=== PATIENT | male | born 1980 | race Caucasian/White ===

== ENCOUNTER → 2023-04-05 | Outpatient (CLI) | payer OTHER ==
[2023-04-05 18:18] LABS: BASOPHILS ABSOLUTE AUTO 0.13 K/mm3 (0.00-0.23); BASOPHILS PERCENT AUTO 1 % (0-2); EOSINOPHILS ABSOLUTE AUTO 0.12 K/mm3 (0.00-0.68); EOSINOPHILS PERCENT AUTO 1 % (0-6); Hemoglobin 15.9 g/dL (13.5-17.5); IMMATURE GRAN ABSOLUTE AUTO 0.03 K/mm3 (0.00-0.10); IMMATURE GRAN PERCENT AUTO 0 % (0-1); LYMPHOCYTES ABSOLUTE AUTO 2.53 K/mm3 (0.84-5.20); LYMPHOCYTES PERCENT AUTO 24 % (21-46); MONOCYTES ABSOLUTE AUTO 1.09 K/mm3 (0.16-1.47); MONOCYTES PERCENT AUTO 10 % (4-13); Mean Corpuscular HGB 28.9 pg (26.0-34.0); Mean Corpuscular HGB Conc 33.8 g/dL (31.5-36.5); Mean Corpuscular Volume 85 fL (80-100); Mean Platelet Volume 9.8 fL (9.1-12.4); NEUTROPHILS ABSOLUTE AUTO 6.65 K/mm3 (1.96-9.15); NEUTROPHILS PERCENT AUTO 63 % (41-73); Platelet Count 376 K/mm3 (150-400); RDW Coefficient Variation 13.5 % (11.7-14.2); RDW Standard Deviation 41.6 fL (35.1-46.3); Red Blood Cell Count 5.51 M/mm3 (4.30-5.90); White Blood Cell Count 10.55 K/mm3 (4.00-11.30)
[2023-04-05 20:11] LABS: Bun/Creatinine Ratio 8.5 (12.0-20.0); Calcium, Blood 9.2 mg/dL (8.5-10.1); Creatinine, Blood 0.59 mg/dL (0.60-1.20)
== END | disposition home or self-care (01) ==
LOC: LAB 18:14 → LAB SHORT 18:14
PROVIDERS: Physician Assistant Surgical
DX: R59.1 Generalized enlarged lymph nodes (principal)
CPT/HCPCS: 80048; 85025

== ENCOUNTER 2023-08-17 01:50 | Emergency (ER) | payer OTHER ==
[~2023-08-17] VITALS: Ht 175.3 cm; Wt 60.8 kg
[2023-08-17 02:41] LABS: Albumin, Blood 3.2 g/dL (3.4-5.0); Albumin/Globulin Ratio 0.9 (0.8-1.8); Bilirubin, Total 0.3 mg/dL (0.1-1.0); Bun/Creatinine Ratio 6.5 (12.0-20.0); Calcium, Blood 6.5 mg/dL (8.5-10.1); Creatinine, Blood 0.61 mg/dL (0.60-1.20); Globulin, Blood 3.6 g/dL (2.2-4.0); Potassium, Blood 2.8 mmol/L (3.5-5.5); Total Protein, Blood 6.8 g/dL (6.4-8.2)
[2023-08-17 02:51] LABS: BASOPHILS ABSOLUTE AUTO 0.04 K/mm3 (0.00-0.23); BASOPHILS PERCENT AUTO 1 % (0-2); EOSINOPHILS ABSOLUTE AUTO 0.12 K/mm3 (0.00-0.68); EOSINOPHILS PERCENT AUTO 3 % (0-6); Hematocrit 40.8 % (37.0-53.0); Hemoglobin 14.3 g/dL (13.5-17.5); IMMATURE GRAN ABSOLUTE AUTO 0.01 K/mm3 (0.00-0.10); IMMATURE GRAN PERCENT AUTO 0 % (0-1); LYMPHOCYTES ABSOLUTE AUTO 0.53 K/mm3 (0.84-5.20); LYMPHOCYTES PERCENT AUTO 13 % (21-46); MONOCYTES ABSOLUTE AUTO 0.66 K/mm3 (0.16-1.47); MONOCYTES PERCENT AUTO 16 % (4-13); Mean Corpuscular HGB 30.1 pg (26.0-34.0); Mean Corpuscular Volume 86 fL (80-100); Mean Platelet Volume 8.8 fL (9.1-12.4); NEUTROPHILS PERCENT AUTO 66 % (41-73); Platelet Count 251 K/mm3 (150-400); RDW Coefficient Variation 15.4 % (11.7-14.2); RDW Standard Deviation 45.6 fL (35.1-46.3); Red Blood Cell Count 4.75 M/mm3 (4.30-5.90); White Blood Cell Count 4.06 K/mm3 (4.00-11.30)
[2023-08-17] MEDS ORDERED: Magnesium Sulf 2 GM/Water 50ML 50 ML IV ONE ×2 (04:40→06:15)
[2023-08-17] MEDS ORDERED: Potassium Phosphate,Monobasic 500 MG Tablet PO ONE (04:40)
[2023-08-17] MEDS ORDERED: D5W-LR 1,000 ML IV SCH (04:45)
[2023-08-17] MEDS ORDERED: Ondansetron HCl 2 MG / ML 2ML Vial IV ONE (04:45)
[2023-08-17 05:58] LABS: Phosphorus, Blood 2.4 mg/dL (2.5-4.9)
[2023-08-17 06:00] LABS: Magnesium, Blood 0.6 mg/dL (1.6-2.4)
[2023-08-17] MEDS ORDERED: Metoclopramide HCl 5MG / ML 2ML Vial IV ONE (06:15)
[2023-08-17] MEDS ORDERED: ONDA4ODT MM (06:18)
[2023-08-17] MEDS ORDERED: PROM12.5S PR (06:18)
[2023-08-17 07:30] VITALS: BP 117/69
== END 2023-08-17 08:05 | disposition home or self-care (01) ==
LOC: ER 01:50
PROVIDERS: Emergency Medicine
DX: E86.0 Dehydration (principal); E83.42 Hypomagnesemia; C10.9 Malignant neoplasm of oropharynx, unspecified; Z79.899 Other long term (current) drug therapy; Z88.0 Allergy status to penicillin; Z88.4 Allergy status to anesthetic agent
CPT/HCPCS: 80053; 83735; 84100; 85025; A9270; J2405; J2765; J3475; J7121

== ENCOUNTER → 2023-08-20 | Outpatient (CLI) | payer OTHER ==
[~2023-08-20] MED LIST: ONDA4ODT MM; POLYMYXIN B-TMP10 ML BOTHEYES; PROM12.5S PR; REMERON1510 PO; ZADITOR5 M1 OP
[2023-08-20 16:33] LABS: Hematocrit 45.5 % (37.0-53.0); Hemoglobin 15.6 g/dL (13.5-17.5); Mean Corpuscular HGB 29.9 pg (26.0-34.0); Mean Corpuscular HGB Conc 34.3 g/dL (31.5-36.5); Mean Corpuscular Volume 87 fL (80-100); Mean Platelet Volume 8.5 fL (9.1-12.4); Platelet Count 243 K/mm3 (150-400); RDW Coefficient Variation 16.3 % (11.7-14.2); RDW Standard Deviation 50.3 fL (35.1-46.3); Red Blood Cell Count 5.21 M/mm3 (4.30-5.90); White Blood Cell Count 3.52 K/mm3 (4.00-11.30)
[2023-08-20 16:53] LABS: Albumin, Blood 3.3 g/dL (3.4-5.0); Albumin/Globulin Ratio 0.8 (0.8-1.8); Bilirubin, Total 0.5 mg/dL (0.1-1.0); Bun/Creatinine Ratio 10.2 (12.0-20.0); Calcium, Blood 7.1 mg/dL (8.5-10.1); Creatinine, Blood 0.69 mg/dL (0.60-1.20); Potassium, Blood 3.6 mmol/L (3.5-5.5); Total Protein, Blood 7.3 g/dL (6.4-8.2)
[2023-08-20 17:12] LABS: BAND PERCENT MAN 2 % (0-8); BASOPHILS PERCENT MAN 0 % (0-2); EOSINOPHILS ABSOLUTE MAN 0.14 K/mm3 (0.00-0.68); EOSINOPHILS PERCENT MAN 4 % (0-6); LYMPHOCYTES % ATYPICAL MANUAL 1 % (0-0); LYMPHOCYTES ABSOLUTE MAN 0.35 K/mm3 (0.84-5.20); LYMPHOCYTES PERCENT MAN 9 % (21-46); MONOCYTES ABSOLUTE MAN 0.38 K/mm3 (0.16-1.47); MONOCYTES PERCENT MAN 11 % (4-13); NEUTROPHILS ABSOLUTE MAN 2.64 K/mm3 (1.96-9.15); SEG NEUTROPHILS PERCENT MAN 73 % (41-73); TOTAL CELLS COUNTED 100
== END | disposition home or self-care (01) ==
LOC: LAB 15:29 → LAB SHORT 15:29
PROVIDERS: Internal Medicine Hematology & Oncology
DX: C01 Malignant neoplasm of base of tongue (principal)
CPT/HCPCS: 80053; 85025

== ENCOUNTER 2023-09-02 20:52 | Emergency (ER) | payer OTHER ==
[~2023-09-02] VITALS: Ht 177.8 cm; Wt 54.9 kg
[~2023-09-02 20:52] MED LIST changes: -POLYMYXIN B-TMP10 ML BOTHEYES; -REMERON1510 PO; -ZADITOR5 M1 OP
[2023-09-02 21:51] LABS: BASOPHILS ABSOLUTE AUTO 0.05 K/mm3 (0.00-0.23); BASOPHILS PERCENT AUTO 1 % (0-2); EOSINOPHILS ABSOLUTE AUTO 0.22 K/mm3 (0.00-0.68); EOSINOPHILS PERCENT AUTO 5 % (0-6); Hematocrit 48.4 % (37.0-53.0); Hemoglobin 16.5 g/dL (13.5-17.5); IMMATURE GRAN PERCENT AUTO 0 % (0-1); LYMPHOCYTES ABSOLUTE AUTO 0.73 K/mm3 (0.84-5.20); LYMPHOCYTES PERCENT AUTO 18 % (21-46); MONOCYTES PERCENT AUTO 12 % (4-13); Mean Corpuscular HGB 29.5 pg (26.0-34.0); Mean Corpuscular HGB Conc 34.1 g/dL (31.5-36.5); Mean Corpuscular Volume 86 fL (80-100); Mean Platelet Volume 8.6 fL (9.1-12.4); NEUTROPHILS ABSOLUTE AUTO 2.62 K/mm3 (1.96-9.15); NEUTROPHILS PERCENT AUTO 64 % (41-73); Platelet Count 425 K/mm3 (150-400); RDW Standard Deviation 49.5 fL (35.1-46.3); White Blood Cell Count 4.12 K/mm3 (4.00-11.30)
[2023-09-02 22:10] VITALS: BP 117/91
[2023-09-02 22:10] LABS: Albumin, Blood 3.6 g/dL (3.4-5.0); Albumin/Globulin Ratio 0.8 (0.8-1.8); Bilirubin, Total 0.3 mg/dL (0.1-1.0); Bun/Creatinine Ratio 7.5 (12.0-20.0); Calcium, Blood 8.8 mg/dL (8.5-10.1); Creatinine, Blood 0.94 mg/dL (0.60-1.20); Globulin, Blood 4.4 g/dL (2.2-4.0); Potassium, Blood 3.6 mmol/L (3.5-5.5)
[2023-09-03] MEDS ORDERED: POLYMYXIN B-TMP10 ML BOTHEYES (01:06)
[2023-09-03] MEDS ORDERED: ZADITOR5 M1 OP (01:06)
[2023-09-03] MEDS ORDERED: REMERON1510 PO (01:07)
== END 2023-09-02 23:40 | disposition home or self-care (01) ==
LOC: ER 20:52
PROVIDERS: Physician Assistant
DX: H10.89 Other conjunctivitis (principal); C02.9 Malignant neoplasm of tongue, unspecified; Z92.3 Personal history of irradiation; Z88.0 Allergy status to penicillin; Z88.4 Allergy status to anesthetic agent
CPT/HCPCS: 80053; 85025; 99283

== ENCOUNTER → 2024-03-11 | Outpatient (CLI) | payer OTHER ==
[~2024-03-11] MED LIST changes: +POLYMYXIN B-TMP10 ML BOTHEYES; +REMERON1510 PO; +ZADITOR5 M1 OP
== END ==
LOC: LAB 13:23 → LAB SHORT 13:23
DX: K14.3 Hypertrophy of tongue papillae (principal); C01 Malignant neoplasm of base of tongue
CPT/HCPCS: 88305

== ENCOUNTER → 2024-04-09 | Outpatient (CLI) | payer OTHER ==
[~2024-04-09] MED LIST changes: +METO10 PO; +ONDA4 PO
[2024-04-09 16:34] LABS: BASOPHILS ABSOLUTE AUTO 0.09 K/mm3 (0.00-0.23); BASOPHILS PERCENT AUTO 1 % (0-2); EOSINOPHILS ABSOLUTE AUTO 0.09 K/mm3 (0.00-0.68); EOSINOPHILS PERCENT AUTO 1 % (0-6); Hematocrit 50.7 % (37.0-53.0); Hemoglobin 17.8 g/dL (13.5-17.5); IMMATURE GRAN ABSOLUTE AUTO 0.04 K/mm3 (0.00-0.10); IMMATURE GRAN PERCENT AUTO 1 % (0-1); LYMPHOCYTES ABSOLUTE AUTO 0.92 K/mm3 (0.84-5.20); LYMPHOCYTES PERCENT AUTO 11 % (21-46); MONOCYTES ABSOLUTE AUTO 0.82 K/mm3 (0.16-1.47); MONOCYTES PERCENT AUTO 10 % (4-13); Mean Corpuscular HGB 30.4 pg (26.0-34.0); Mean Corpuscular HGB Conc 35.1 g/dL (31.5-36.5); Mean Corpuscular Volume 87 fL (80-100); Mean Platelet Volume 8.3 fL (9.1-12.4); NEUTROPHILS ABSOLUTE AUTO 6.62 K/mm3 (1.96-9.15); NEUTROPHILS PERCENT AUTO 77 % (41-73); Platelet Count 382 K/mm3 (150-400); RDW Coefficient Variation 14.8 % (11.7-14.2); RDW Standard Deviation 47.1 fL (35.1-46.3); Red Blood Cell Count 5.85 M/mm3 (4.30-5.90); White Blood Cell Count 8.58 K/mm3 (4.00-11.30)
[2024-04-09 16:49] LABS: Albumin/Globulin Ratio 0.7 (0.8-1.8); Bilirubin, Total 0.9 mg/dL (0.1-1.0); Bun/Creatinine Ratio 14.3 (12.0-20.0); Calcium, Blood 9.4 mg/dL (8.5-10.1); Creatinine, Blood 0.91 mg/dL (0.60-1.20); Globulin, Blood 4.1 g/dL (2.2-4.0); Magnesium, Blood 1.4 mg/dL (1.6-2.4); Potassium, Blood 4.7 mmol/L (3.5-5.5); Total Protein, Blood 7.1 g/dL (6.4-8.2)
== END | disposition home or self-care (01) ==
LOC: LAB SHORT 16:27 → LAB 16:27
PROVIDERS: Family Medicine
DX: R11.2 Nausea with vomiting, unspecified (principal)
CPT/HCPCS: 80053; 83735; 85025

== ENCOUNTER 2024-04-10 21:15 | Emergency (ER) | payer OTHER ==
[~2024-04-10] VITALS: Ht 172.7 cm; Wt 60.3 kg
[~2024-04-10 21:15] MED LIST changes: -METO10 PO; -ONDA4 PO
[2024-04-10 21:42] LABS: BASOPHILS ABSOLUTE AUTO 0.07 K/mm3 (0.00-0.23); BASOPHILS PERCENT AUTO 1 % (0-2); EOSINOPHILS ABSOLUTE AUTO 0.09 K/mm3 (0.00-0.68); EOSINOPHILS PERCENT AUTO 1 % (0-6); Hematocrit 53.7 % (37.0-53.0); Hemoglobin 18.4 g/dL (13.5-17.5); IMMATURE GRAN ABSOLUTE AUTO 0.02 K/mm3 (0.00-0.10); IMMATURE GRAN PERCENT AUTO 0 % (0-1); LYMPHOCYTES ABSOLUTE AUTO 0.94 K/mm3 (0.84-5.20); LYMPHOCYTES PERCENT AUTO 11 % (21-46); MONOCYTES ABSOLUTE AUTO 0.65 K/mm3 (0.16-1.47); MONOCYTES PERCENT AUTO 8 % (4-13); Mean Corpuscular HGB 30.3 pg (26.0-34.0); Mean Corpuscular HGB Conc 34.3 g/dL (31.5-36.5); Mean Corpuscular Volume 88 fL (80-100); Mean Platelet Volume 8.1 fL (9.1-12.4); NEUTROPHILS ABSOLUTE AUTO 6.78 K/mm3 (1.96-9.15); NEUTROPHILS PERCENT AUTO 79 % (41-73); Platelet Count 386 K/mm3 (150-400); RDW Standard Deviation 49.1 fL (35.1-46.3); Red Blood Cell Count 6.08 M/mm3 (4.30-5.90); White Blood Cell Count 8.55 K/mm3 (4.00-11.30)
[2024-04-10 22:04] LABS: Albumin, Blood 3.2 g/dL (3.4-5.0); Albumin/Globulin Ratio 0.7 (0.8-1.8); Bilirubin, Total 0.8 mg/dL (0.1-1.0); Bun/Creatinine Ratio 11.8 (12.0-20.0); Calcium, Blood 9.2 mg/dL (8.5-10.1); Creatinine, Blood 0.85 mg/dL (0.60-1.20); Globulin, Blood 4.4 g/dL (2.2-4.0); Total Protein, Blood 7.6 g/dL (6.4-8.2)
[2024-04-10 22:39] VITALS: BP 130/92
[2024-04-10] MEDS ORDERED: NS 1,000 ML IV SCH (23:00)
[2024-04-10] MEDS ORDERED: Ondansetron HCl 2 MG / ML 2ML Vial IV ONE (23:00)
[2024-04-10 23:34] LABS: Free Thyroxine 1.02 ng/dL (0.70-1.60); Thyroid Stimulating Hormone 6.74 uIU/mL (0.360-4.800)
[2024-04-10] MEDS ORDERED: ONDA4 PO (23:41)
[2024-04-11] MEDS ORDERED: ONDA4ODT MM (04:43)
[2024-04-11] MEDS ORDERED: METO10 PO (04:54)
== END 2024-04-11 00:09 | disposition home or self-care (01) ==
LOC: ER 21:15
PROVIDERS: Physician Assistant
DX: R11.2 Nausea with vomiting, unspecified (principal); R10.9 Unspecified abdominal pain; Z79.899 Other long term (current) drug therapy; Z88.0 Allergy status to penicillin; Z88.8 Allergy status to other drugs, medicaments and biological substances
CPT/HCPCS: 80053; 84439; 84443; 85025; 96361; 96374; 99284-25; J2405; J7030

== ENCOUNTER 2024-04-11 01:04 | Emergency (ER) | payer OTHER ==
[~2024-04-11] VITALS: Ht 175.3 cm; Wt 59.4 kg
[~2024-04-11 01:04] MED LIST changes: +ONDA4 PO
[2024-04-11] MEDS ORDERED: NS 1,000 ML IV SCH (01:50)
[2024-04-11] MEDS ORDERED: Ondansetron HCl 2 MG / ML 2ML Vial IV ONE (01:50)
[2024-04-11 03:54] LABS: Source, Urine Clean Catch
[2024-04-11] MEDS ORDERED: Metoclopramide HCl 5MG / ML 2ML Vial IV ONE (03:55)
[2024-04-11 03:58] LABS: Appearance, Urine Clear (Clear); Bilirubin, Urine Neg (Neg); Blood, Urine Neg (Neg); Color, Urine Yellow (P-Yellow); Glucose Qualitative, Urine Neg (Neg); Ketones, Urine 2+ (Neg); Leukocyte Esterase, Urine Neg (Neg); Nitrite, Urine Neg (Neg); Protein, Urine Neg (Neg); Urobilinogen, Urine NORM (Normal)
[2024-04-11] MEDS ORDERED: NS 500 ML IV SCH (04:05)
[2024-04-11 04:30] VITALS: BP 127/93
[2024-04-11] MEDS ORDERED: ONDA4ODT MM (04:43)
[2024-04-11] MEDS ORDERED: METO10 PO (04:54)
== END 2024-04-11 04:45 | disposition home or self-care (01) ==
LOC: ER 01:04
PROVIDERS: Student in an Organized Health Care Education/Training Program
DX: R11.2 Nausea with vomiting, unspecified (principal); Z79.899 Other long term (current) drug therapy; Z88.0 Allergy status to penicillin; Z88.8 Allergy status to other drugs, medicaments and biological substances
CPT/HCPCS: 74177; 81003; 82947; 96361; 96374-59; 96375; 99284-25; J2405; J2765; J7030; Q9967

== ENCOUNTER 2024-04-12 14:43 | Emergency (ER) | payer OTHER ==
[~2024-04-12] VITALS: Ht 175.3 cm; Wt 59.0 kg
[~2024-04-12 14:43] MED LIST changes: +METO10 PO
[2024-04-12 15:08] LABS: BASOPHILS ABSOLUTE AUTO 0.08 K/mm3 (0.00-0.23); BASOPHILS PERCENT AUTO 1 % (0-2); EOSINOPHILS PERCENT AUTO 1 % (0-6); Hematocrit 52.9 % (37.0-53.0); Hemoglobin 18.3 g/dL (13.5-17.5); IMMATURE GRAN ABSOLUTE AUTO 0.02 K/mm3 (0.00-0.10); IMMATURE GRAN PERCENT AUTO 0 % (0-1); LYMPHOCYTES ABSOLUTE AUTO 1.32 K/mm3 (0.84-5.20); LYMPHOCYTES PERCENT AUTO 17 % (21-46); MONOCYTES ABSOLUTE AUTO 0.79 K/mm3 (0.16-1.47); MONOCYTES PERCENT AUTO 10 % (4-13); Mean Corpuscular HGB 30.5 pg (26.0-34.0); Mean Corpuscular HGB Conc 34.6 g/dL (31.5-36.5); Mean Corpuscular Volume 88 fL (80-100); Mean Platelet Volume 8.3 fL (9.1-12.4); NEUTROPHILS ABSOLUTE AUTO 5.26 K/mm3 (1.96-9.15); NEUTROPHILS PERCENT AUTO 70 % (41-73); Platelet Count 365 K/mm3 (150-400); RDW Standard Deviation 48.8 fL (35.1-46.3); White Blood Cell Count 7.57 K/mm3 (4.00-11.30)
[2024-04-12 15:33] LABS: Albumin, Blood 3.2 g/dL (3.4-5.0); Albumin/Globulin Ratio 0.7 (0.8-1.8); Bun/Creatinine Ratio 12.1 (12.0-20.0); Calcium, Blood 9.2 mg/dL (8.5-10.1); Creatinine, Blood 0.74 mg/dL (0.60-1.20); Globulin, Blood 4.3 g/dL (2.2-4.0); Potassium, Blood 3.5 mmol/L (3.5-5.5); Total Protein, Blood 7.5 g/dL (6.4-8.2)
[2024-04-12] MEDS ORDERED: Ondansetron HCl 2 MG / ML 2ML Vial IV ONE (15:45)
[2024-04-12] MEDS ORDERED: NS 1,000 ML IV SCH (15:45)
[2024-04-12] MEDS ORDERED: Metoclopramide HCl 5MG / ML 2ML Vial IV ONE (15:50)
[2024-04-12 17:52] VITALS: BP 145/92
== END 2024-04-12 17:51 | disposition home or self-care (01) ==
LOC: ER 14:43
PROVIDERS: Physician Assistant
DX: R11.2 Nausea with vomiting, unspecified (principal); E86.0 Dehydration; F17.200 Nicotine dependence, unspecified, uncomplicated; Z88.0 Allergy status to penicillin; Z88.5 Allergy status to narcotic agent; Z79.899 Other long term (current) drug therapy
CPT/HCPCS: 71046; 80053; 83690; 83735; 85025; 96361; 96374; 99284-25; J2405; J2765; J7030

== ENCOUNTER 2024-08-05 11:41 | Day surgery (SDC) | payer OTHER ==
[~2024-08-05] VITALS: Ht 175.3 cm; Wt 60.4 kg
[~2024-08-05 11:41] MED LIST changes: +Lactated Ringer's 1,000 ML IV ONE
[2024-08-05] MEDS ORDERED: EPINEPhrine HCl 1 MG / ML 30ML Vial ONE (11:59)
[2024-08-05] MEDS ORDERED: Lactated Ringer's 1,000 ML IV ONE (12:21)
[2024-08-05] MEDS ORDERED: LEVSOD100 PO (12:24)
[2024-08-05] MEDS ORDERED: OMEP20ER PO (12:25)
--- NOTE | 2024-08-05 12:47 | NUR ---
08/05/24 1247 MARILUZ PANDYA PATIENT STATES IN [place] THAT HE WANTS MOTHER TO INTERPRET FOR HIM AND HE DECLINES PROFESSIONAL INTERPRETATION AT THIS TIME. PT SPEAKS CAMEROONIAN
[2024-08-05] MEDS ORDERED: Midazolam HCl 1MG / ML 2ML Vial ONE (13:02)
[2024-08-05] MEDS ORDERED: propofoL 20 ML IV ONE (13:02)
[2024-08-05] MEDS ORDERED: FentaNYL Citrate 50 MCG/ML 2 ML Injection ONE (13:02)
[2024-08-05] MEDS ORDERED: Sugammadex Sodium 200 MG/2ML SDV (100 MG/ML) ONE (13:28)
[2024-08-05] MEDS ORDERED: Ondansetron HCl 2 MG / ML 2ML Vial ONE (13:50)
[2024-08-05] MEDS ORDERED: SuccINYLCHOLINE Chloride 100 MG/5 ML 5MLSYR ONE (13:50)
[2024-08-05] MEDS ORDERED: Dexamethasone Sod Phos 10 MG/ML 1ML VIAL ONE (13:50)
[2024-08-05] MEDS ORDERED: Rocuronium Bromide 10 MG/ML 5ML Injection IV ONE (13:50)
[2024-08-05] MEDS ORDERED: Ketorolac Tromethamine 30mg Vial ONE (13:51)
[2024-08-05 14:59] VITALS: BP 145/103
--- NOTE | 2024-08-05 15:02 | NUR ---
08/05/24 1502 Karyn Gilbert RN, ISAK Arroyo, EDUCATED PT REGARDING HIS HIGH BLOOD PRESSURE. PT'S BP WAS 140 IN SYSTOLIC RANGE AND DIASTOLIC BP WAS IN THE LOW 90's. NURSE ISAK ADVISED PT TO GO SEE PCP TO DISCUSS HIGH BP. PT DENIED ANY PAIN, NO COY, AND NO CHEST PAIN. NO C/O NAUSEA. PT TOLERATED FLUIDS WELL. PT'S MOTHER IN ROOM LISTENING TO DISCHARGE INSTRUCTIONS.
== END 2024-08-05 14:48 | disposition home or self-care (01) ==
LOC: ORSCSDS 11:41
PROVIDERS: Otolaryngology
PROC: 0CBM8ZX Excision of Pharynx, Via Natural or Artificial Opening Endoscopic, Diagnostic (ICD-10-PCS; principal; 2024-08-05 13:00)
DX: C01 Malignant neoplasm of base of tongue (principal); I10 Essential (primary) hypertension; F17.210 Nicotine dependence, cigarettes, uncomplicated; K21.9 Gastro-esophageal reflux disease without esophagitis; E03.9 Hypothyroidism, unspecified; Z79.899 Other long term (current) drug therapy
CPT/HCPCS: 88305; 88312; J0171; J0330; J1100; J1885; J2250; J2405; J2704; J3010; J7120

== ENCOUNTER → 2024-11-19 | Outpatient (CLI) | payer OTHER ==
[~2024-11-19] MED LIST changes: +LEVSOD100 PO; -Lactated Ringer's 1,000 ML IV ONE; +OMEP20ER PO
== END ==
LOC: LAB 14:11 → LAB SHORT 14:11
DX: L30.8 Other specified dermatitis (principal)
CPT/HCPCS: 88312